=== PATIENT | female | born 1995 | race Caucasian/White ===

== ENCOUNTER 2018-10-28 16:47 | Observation (INO) | payer MEDICAID, OTHER ==
[~2018-10-28] VITALS: Ht 167.6 cm; Wt 71.7 kg
[~2018-10-28 16:47] MED LIST: TYLENOL EXTRA500 MG PO
--- NOTE | 2018-10-28 20:37 | NUR ---
RECIEVED REPORT FROM ER NURSE VIA TELEPHONE. ALL QUESTIONS ANSWERED. WAITING FOR PATIENT TO ARRIVE TO THE FLOOR AT THIS TIME.
--- NOTE | 2018-10-28 21:01 | NUR ---
PATIENT ARRIVED TO THE FLOOR VIA STRETCHER. PATIENT IN 4 POINT [employer]. 1 OFFICER IN ROOM, WHO STATES SHE WILL BE RELEASED WITHIN THE HOUR ONCE ARRANGEMENTS ARE MADE. PATIENT IS FROM THE LOCAL [facility]. PATIENT IS ALERT AND CALM. RATES PAIN 5/10 AND DENIES PRN PAIN MEDS. PATIENT DENIES NAUSEA AND REQUEST FOOD. JELLO AND WATER PROVIDED. IV ABX FROM ED FINISHED. CONTINUOUS FLUIDS STARTED PER ORDERS. PATIENT DENIES TOILETING NEEDS. ALLOWED TO REST.
--- NOTE | 2018-10-28 21:45 | NUR ---
PATIENT RELEASED FROM CUSTODY OF THE LONGTERM. PATIENT REQUEST A SHOWER WHICH WAS SET UP FOR HER WITH A CHANGE OF CLOTHES. PATIENT PROVIDED MORE JELLO AND WATER. NO OTHER NEEDS AT THIS TIME.
--- NOTE | 2018-10-28 22:30 | NUR ---
PATIENT PROVIDED WITH PRN PAIN MEDS FOR 6/10 PAIN. PATIENT TOLERATING JELLO AND SIPS OF WATER. DENIES FURTHER NEEDS AT THIS TIME.
--- NOTE | 2018-10-28 22:55 | NUR ---
ASSESSMENT COMPLETE, REFER TO ASSESSMENT. PATIENT REPORTS "4/10" "DULL" AND "THROBBING" PAIN IN RUQ THAT RADIATES TO BACK. PRN PAIN MEDICATION PROVIDED BY RESISTOR WINDERSPENSER. PATIENT DENIES NAUSEA. JELLO PROVIDED PER PATIENT REQUEST. IV FLUIDS INFUSING PER MAR ORDER. PATIENT REPORTS PASSING FLATUS WITH ACTIVE BOWEL TONES. CALL LIGHT WITHIN REACH. NO MORE NEEDS AT THIS TIME.
--- NOTE | 2018-10-28 23:40 | NUR ---
ROUNDED ON PATIENT RESTING IN BED WITH EYES CLOSED, RESPIRATORY RATE IS EVEN AND UNLABORED. CALL LIGHT WITHIN REACH.
--- NOTE | 2018-10-29 02:05 | NUR ---
ASSESSMENT COMPLETE, REFER TO ASSESSMENT. PATIENT SLEEPY DURING ASSESMENT, BUT EASILY AWOKE WHEN SPOKEN TO. PATIENT REPORTS "3/10" PAIN IN RUQ, DENIES WANTING PRN PAIN MEDICATION AT THIS TIME. PATIENT DENIES CHEST PAIN, SOB OR DIFFICULTY BREATHING. MEDICATION ADMINISTERED PER MAR ORDER. CALL LIGHT WITHIN REACH. NO MORE NEEDS AT THIS TIME.
--- NOTE | 2018-10-29 03:15 | NUR ---
ROUNDED ON PATIENT TO REASSESS PATIENT BLOOD PRESSURE. PATIENT DENIES HAVING DIZZINESS OR LIGHTHEADEDNESS. UPDATED CHARGE NURSE, SPENSER OF PATIENT'S BLOOD PRESSURE. CALL LIGHT WITHIN REACH. NO MORE NEEDS AT THIS TIME.
--- NOTE | 2018-10-29 04:51 | NUR ---
ROUNDED ON PATIENT RESTING IN BED WITH EYES CLOSED, RESPIRATORY RATE IS EVEN AND UNLABORED. CALL LIGHT WITHIN REACH.
--- NOTE | 2018-10-29 06:10 | NUR ---
NOTIFIED DR. COMBS OF PATIENT'S BLOOD PRESSURES AND HEART RATE THROUGHOUT THIS SHIFT, NO NEW ORDERS AT THIS TIME.
--- NOTE | 2018-10-29 06:46 | NUR ---
ROUNDED ON PATIENT FOR ASSESSMENT. ASSESSMENT COMPLETE. IV FLUIDS INFUSING PER MAR ORDER. PATIENT REPORTS "4/10" PAIN IN ABD, DENIES WANTING PRN PAIN MEDICATION AT THIS TIME. PATIENT DENIES NAUSEA. DR. COMBS IN ROOM TO ASSESS AND TALK WITH PATIENT. CALL LIGHT WITHIN REACH. NO MORE NEEDS AT THIS TIME.
--- NOTE | 2018-10-29 07:33 | NUR ---
REPORT RECEIVED FROM STRIPPING SHOVEL OPERATOR RN. PT LYING IN BED ON LEFT SIDE WITH EYES CLOSED. NS AT 125 INFUSING. RESPIRATIONS 16 EQUAL AND NONLABORED. CALL LIGHT IN REACH,
--- NOTE | 2018-10-29 09:29 | NUR ---
MEDICATIONS ADMINISTERED. PT REPORTED 5.10 PAIN. PRN PAIN MEDICAITON ADMINISTERED. FLUIDS CHANGED TO D5LR AT 100ML. NS DC'D. BOWEL TONES ACTIVE. ABDOMEN TENDER. LUNGS CLEAR, HERAT SOUNDS REGULAR. CALL LIGHT IN REACH. JUICE AND CRACKERS PROVIDED. PT ORDERED BREAKFAST. CALL LIGHT IN REACH.
--- NOTE | 2018-10-29 09:52 | NUR ---
PATIENT RESTING IN BED. VITAL SIGNS AND I&O DONE. LOW BLOOD PRESSURE. RN NOTIFIED. CALL LIGHT WITHIN REACH. NO OTHER NEEDS AT THIS TIME
--- NOTE | 2018-10-29 11:00 | NUR ---
MED REC COMPLETE
--- NOTE | 2018-10-29 11:00 | NUR ---
PT PLACED ON NPO STATUS.
--- NOTE | 2018-10-29 11:51 | NUR ---
PATIENT SITTING UP IN BED. MOM AND RN IN ROOM. SETS UP BATHROOM FOR SHOWER. PATIENT'S IV COVERED. CALL LIGHT WITHIN REACH. NO OTHER NEEDS AT THIS TIME
--- NOTE | 2018-10-29 13:25 | NUR ---
PATIENT SITTING UP IN BED. VITAL SIGNS AND I&O DONE. BOYFRIEND IN ROOM. CALL LIGHT WITHIN REACH. NO OTHER NEEDS AT THIS TIME
--- NOTE | 2018-10-29 14:14 | NUR ---
PT IS NPO-PREPPING FOR SURGERY THIS AFTERNOON. CHECKED WITH PT REGARDING A VISITOR . SHE ASKED TO HAVE THEM COME IN. EXTENDED A BLESSING, WILL FOLLOW NEEDED
--- NOTE | 2018-10-29 16:22 | NUR ---
SPOKE WITH STAFF WHO STATES PATIENT IS INDEPENDENT AND HAS NO KNOWN CM NEEDS. THEY WILL PLACE CONSULT IF SOMETHING IS FOUND BEFORE DISCHARGE.
--- NOTE | 2018-10-29 17:05 | NUR ---
PT OFF FLOOR TO SURGERY.
--- NOTE | 2018-10-29 18:18 | NUR ---
PT OFF FLOOR TO SURGERY. D5LR @100. LA AND BIBI PRN.
--- NOTE | 2018-10-29 18:51 | CONS ---
[facility] [address] [place], [place] [address] Signed DATE OF CONSULTATION: 10/29/2018 CHIEF COMPLAINT: Right upper quadrant abdominal pain. 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 Consequently, we all know each other. Unfortunately, she was driving with her license suspended and ended up in our local on license of [facility]. She had an attack of right upper quadrant abdominal pain with nausea radiating through to her back with nausea and vomiting. She was brought to our local emergency room for evaluation. Her white count was normal along with her liver function test. The beta-HCG was negative. Ultrasound of course confirmed multiple gallstones with an unremarkable gallbladder wall and an unremarkable common bile duct. I have been asked to admit her as a general surgeon on-call. She did receive some pain medication along with Rocephin and Flagyl. Overnight, she has done quite well with her IV fluids. She told me this morning that 2-1/2 years ago when she was , she almost had her gallbladder removed during the . PAST MEDICAL HISTORY: Cholelithiasis and asthma as a child, but none in the last five years. PAST SURGICAL HISTORY: C-sections x2. SOCIAL HISTORY: She quit smoking. She does not drink. No drugs currently. Her life partner is Lizandro Sawant at [phone]. She has 2 children. Her primary care provider is Cayetano Bustillos. She is a physician's lpn medical assistant. FAMILY HISTORY: Mother and father are healthy. REVIEW OF SYSTEMS: Tatum had 10 systems reviewed and there was nothing new to add other than asthma. ALLERGIES: Penicillin, sulfa, doxycycline, nitrofurantoin, gentamicin, and seasonal allergies. MEDICATIONS: None. PHYSICAL EXAMINATION: Electronically Signed By: LAVONNE COMBS MD 10/29/18 7607 PATIENT NAME: TATUM AVILES CONSULTATION DATE OF : [birth year] REPORT #: [id number] PHYSICIAN: LAVONNE COMBS MD PCP: CAYETANO BUSTILLOS REPORT IS CONFIDENTIAL AND NOT TO BE RELEASED WITHOUT AUTHORIZATION [facility] [address] [place], [place] [address] Signed VITAL SIGNS: Her blood pressure is 96/53, heart rate 41, respiratory rate 16, temperature is 98.2. She is 100% on room air. She is 5 feet 6 inches and 71 kg. GENERAL: Tatum is a 23-year-old female, who is lying supine in her hospital bed. Her nurse is in the room with us. She does not appear systemically ill or toxic. She is not jaundiced. She is not in pain currently. LUNGS: Clear to auscultation. HEART: Regular rate and rhythm. ABDOMEN: Soft, flat, and nontender. LABORATORY DATA: Her white count is 8.4, hemoglobin 12, neutrophils 71. Her BUN 13, creatinine 0.6, blood sugars 100, total bilirubin 0.2, AST 17, ALT 21, alkaline phosphatase 45, albumin is 4.0. Her beta-HCG is negative. RADIOGRAPHIC STUDIES: Ultrasound of the right upper quadrant is reviewed and she does have multiple mobile stones within the gallbladder. The gallbladder wall is not thickened. The common bile duct is unremarkable. ASSESSMENT AND PLAN: Tatum is a 23-year-old female who presents with chronic cholelithiasis and cholecystitis with biliary colic. She is now feeling better. She has been admitted, given IV fluids and antibiotics. I have reviewed with her the above findings. She has been having intermittent trouble with her symptoms. Consequently, we decided to go ahead and remove her gallbladder at this time. We discussed the location and function of the gallbladder. We discussed laparoscopic versus open cholecystectomy. She understands expected intraop and postop course. We did review the risks including, but not limited to bleeding, infection, scarring, change in contour of the skin, damage to bowel, damage to main bile duct, incisional hernias and other unforeseen comorbidities. She has expressed understanding and would like to proceed. MD ALEE Lorenzo/ROSARIOL /[id number] cc: LAVELL Cadena Electronically Signed By: LAVONNE COMBS MD 10/29/18 1851 PATIENT NAME: TATUM AVILES CONSULTATION DATE OF : [birth year] REPORT #: [id number] PHYSICIAN: LAVONNE COMBS MD PCP: CAYETANO BUSTILLOS REPORT IS CONFIDENTIAL AND NOT TO BE RELEASED WITHOUT AUTHORIZATION [address] [address] Signed Copies: CAYETANO BUSTILLOS ~ Electronically Signed By: LAVONNE COMBS MD 10/29/18 1851 PATIENT NAME: TATUM AVILES CONSULTATION DATE OF : [birth year] REPORT #: [id number] PHYSICIAN: LAVONNE COMBS MD PCP: CAYETANO BUSTILLOS REPORT IS CONFIDENTIAL AND NOT TO BE RELEASED WITHOUT AUTHORIZATION
--- NOTE | 2018-10-29 19:01 | NUR ---
10/29/18 190 Annabelle Giron 1856: ORAL AIRWAY REMOVED. 1857: O2 MASK REMOVED. PATIENT ON ROOM AIR. PATIENT STATES "VERY LITTLE" WHEN ASKED IF HAVING PAIN. PATIENT FALLING BACK TO SLEEP.
--- NOTE | 2018-10-29 19:50 | NUR ---
PATIENT UP TO BATHROOM. STEADY ON HER FEET. DENIES PAIN OR DIZZINESS. PATIENT REQUEST JELLO WHICH WAS GIVEN TO HER, TOLERATING SIPS OF WATER. FAMILY IN ROOM.
--- NOTE | 2018-10-29 20:20 | NUR ---
PATIENT UP AMBULATING IN THE HALLWAYS WITH FAMILY. APPEARS STEADY. REQUESTING SNACKS, WHICH WERE PROVIDED TO HER. DENIES FURTHER NEEDS.
--- NOTE | 2018-10-29 21:38 | NUR ---
PATIENT PROVIDED WITH PRN TORADOL FOR PAIN 12/04. PATIENT STATES HER WISHES TO DC TONIGHT RATHER THAN THE AM. DISCUSSED OPTIONS WITH PATIENT. SHE HAS VOIDED, HAS GOOD PAIN CONTROL, AMBULATED WITHOUT ASSIST, AND VS STABLE. PATIENT WILL GO HOME WITH HER PARENTS FOR THE THE NIGHT. THEY HAVE GONE TO FILL HER PRESCRIPTIONS AT THIS TIME. DR. LAURYN SPENCE.
--- NOTE | 2018-10-30 06:15 | OR ---
[facility] [address] [place], [place] [address] Signed DATE OF OPERATION: 10/29/2018 SURGEON: Lavonne Combs MD PREOPERATIVE DIAGNOSIS: Acute cholecystitis, cholelithiasis. POSTOPERATIVE DIAGNOSES: 1. Acute cholecystitis, cholelithiasis. 2. Cholesterolosis. PROCEDURE PERFORMED: Laparoscopic cholecystectomy with intraoperative cholangiogram. ESTIMATED BLOOD LOSS: None. FINDINGS: Tatum had multiple yellow stones within the gallbladder measuring around 6 to 8 mm in diameter. She had significant cholesterolosis. She did have gallbladder wall thickening with [id number] edema. The intraoperative cholangiogram was unremarkable. INDICATIONS: Tatum is a 23-year-old female, who is having significant right upper quadrant abdominal pain with nausea and vomiting. The pain was radiating through to her back. [facility] local [facility] brought her in to the emergency room for evaluation. In the emergency room, her white count was unremarkable along with liver function test. Her beta-hCG was negative. Ultrasound confirmed the cholelithiasis with an unremarkable common bile duct. I have been asked to admit her as a general surgeon on-call. She did receive Rocephin and Flagyl. She did well overnight. I met her first time this morning. We discussed her current findings. We discussed the location and function of the gallbladder. She explained to me that about 2-1/2 years ago while she was they came very close to removing her gallbladder. We also discussed the expected intraop and postop course. There is risk of surgery including, but not limited to bleeding, infection, scarring, change in contour of the skin, damage to bowel, damage to main bile duct, and incisional hernias. She had expressed understanding and wished to proceed. DESCRIPTION OF PROCEDURE: Tatum was taken into our operating room and placed in the supine position under general Electronically Signed By: LAVONNE COMBS MD 10/30/18 0615 PATIENT NAME: TATUM AVILES OPERATIVE REPORT DATE OF : [birth year] REPORT #: [id number] PHYSICIAN: LAVONNE COMBS MD PCP: CAYETANO YOUNG REPORT IS CONFIDENTIAL AND NOT TO BE RELEASED WITHOUT AUTHORIZATION [facility] [address] [place], [place] [address] Signed endotracheal tube anesthesia. She was already on preoperative antibiotics along with subcutaneous heparin. SCDs were utilized. She was then prepped and draped in the usual sterile fashion. All trocars were placed in usual positions under direct visualization of the camera without difficulty. Gallbladder was grasped and elevated in the right upper quadrant. Pictures were taken throughout for photodocumentation. The triangle of Calot was dissected free and a clip was placed on a cystic artery and it was divided. The intraoperative cholangiocatheter was inserted into the cystic duct. The intraoperative cholangiogram was performed and found to be unremarkable. The cystic duct stump was secured with a PDS Endoloop along with 2 clips to ember its location. After this, the gallbladder was removed from the gallbladder fossa with the help of cautery. We did note today she has some edema between the gallbladder and the liver. The gallbladder was then placed into an EndoCatch bag. The right upper quadrant was irrigated and suctioned out until clear. We used our laparoscopic suturing device to pass 0 Vicryl suture on either side of the fascia of the subxiphoid trocar site. This was tied down to close this fascia primarily. After this, all the gas was allowed to escape and all the remaining trocars were removed along with the gallbladder. Our circulating nurse opened the gallbladder on the back table for photodocumentation. We used interrupted [id number] and simple 0 Vicryl sutures to close the fascia of the supraumbilical trocar site. Local anesthetic was copiously injected into all trocar sites. The skin and dermis of each trocar site was then closed with interrupted 3-0 subcuticular Monocryl sutures. Dry gauze and tape were applied to all incisions. Tatum was then awakened from her anesthesia, extubated in the OR, and taken to recovery room in stable condition. Lavonne Combs MD ALB/MODL /[id number] cc: MD Cayetano Lorenzo PA Copies: LAVONNE COMBS MD Electronically Signed By: LAVONNE COMBS MD 10/30/18 0615 PATIENT NAME: TATUM AVILES OPERATIVE REPORT DATE OF : [birth year] REPORT #: [id number] PHYSICIAN: LAVONNE COMBS MD PCP: CAYETANO YOUNG REPORT IS CONFIDENTIAL AND NOT TO BE RELEASED WITHOUT AUTHORIZATION [address] [address] Signed CAYETANO YOUNG ~ Electronically Signed By: LAVONNE COMBS MD 10/30/18 0615 PATIENT NAME: TATUM AVILES OPERATIVE REPORT DATE OF : [birth year] REPORT #: [id number] PHYSICIAN: LAVONNE COMBS MD PCP: CAYETANO YOUNG REPORT IS CONFIDENTIAL AND NOT TO BE RELEASED WITHOUT AUTHORIZATION
== END 2018-10-29 22:05 | disposition home or self-care (01) ==
LOC: ED 16:47 → MS 16:49
PROVIDERS: ADMIT Colon & Rectal Surgery
PROC: BF101ZZ Fluoroscopy of Bile Ducts using Low Osmolar Contrast (ICD-10-PCS; 2018-10-29)
PROC: 0FT44ZZ Resection of Gallbladder, Percutaneous Endoscopic Approach (ICD-10-PCS; principal; 2018-10-29 17:15)
DX: K80.12 Calculus of gallbladder with acute and chronic cholecystitis without obstruction (principal); Z87.891 Personal history of nicotine dependence; Z88.1 Allergy status to other antibiotic agents; Z88.0 Allergy status to penicillin; Z88.2 Allergy status to sulfonamides
CPT/HCPCS: 00790; 74300; 76705; 80053; 81001; 84703; 85025; 96361; 96365; 96366; 96375; 96376; 99285-25; C9113; G0378; J0330; J0696; J1100; J1170; J1885; J2250; J2405; J2550; J2704; J2765; J3010; J7030; J7120; Q9967

== ENCOUNTER 2019-07-08 09:37 | Emergency (ER) | payer OTHER ==
[~2019-07-08] VITALS: Ht 167.6 cm; Wt 71.7 kg
== END 2019-07-08 12:27 | disposition home or self-care (01) ==
LOC: ED 09:37
DX: R55 Syncope and collapse (principal); Z87.891 Personal history of nicotine dependence; Z88.0 Allergy status to penicillin; Z88.2 Allergy status to sulfonamides
CPT/HCPCS: 80053; 81001; 84703; 85025; 96360; 99284-25; J7030